=== PATIENT | female | born 1990 | race Caucasian/White ===

== ENCOUNTER 2016-11-25 19:00 | Emergency (ER) | payer MEDICAID ==
[2016-11-25 19:05] VITALS: RESP 16
--- NOTE | 2016-11-25 19:20 | EDPHY ---
H & P Stated Complaint: ruq abd pain/intermittent n/v x 4 days Time Seen by Provider: 11/25/16 19:11 HPI/ROS: CHIEF COMPLAINT: Right upper quadrant and epigastric pain x4 days HISTORY OF PRESENT ILLNESS: 26-year-old female otherwise healthy complaining of intermittent right upper quadrant epigastric pain for the past 4 days, tends to occur primarily after eating. Positive nausea. No vomiting. 1 episode of loose stool 4 days ago. No melena or hematochezia. No radiation of pain. No back pain. No dyspnea. No chest pain. No syncope or near syncope. No urinary complaints. No chronic NSAID use. No heavy alcohol use. REVIEW OF SYSTEMS: A ten point review of systems was performed and is negative with the exception of the items mentioned in the HPI PAST MEDICAL & SURGICAL HISTORY: No history of chronic abdominal pathology or surgeries SOCIAL HISTORY: nonsmoker PHYSICAL EXAM (Prior to examination, patient consented to physical exam, hands were washed and my usual and customary physical exam procedures followed) 1) GENERAL: Well-developed, well-nourished, alert and oriented. Appears to be in no acute distress. 2) HEAD: Normocephalic, atraumatic 3) HEENT: Pupils equal, round, reactive to light bilaterally. Sclera anicteric. 4) NECK: Full range of motion, no meningeal signs. 5) LUNGS: Clear auscultation bilaterally, no wheezes, no rhonchi, no retractions. 6) HEART: Regular rate and rhythm, no murmur, no heave, no gallop. 7) ABDOMEN: No guarding, she is tender to palpation epigastrium negative , McBurney's, negative Noe's, negative Rovsing's, negative peritoneal sign, 8) MUSCULOSKELETAL: Moving all extremities, no focal areas of tenderness, no obvious trauma. No peripheral edema or discoloration. 9) BACK: No CVA tenderness, no midline vertebral tenderness, no fluctuance, no step-off, no obvious trauma, no visual or palpable abnormality. 10) SKIN: No rash, no petechiae. 11) Psychiatric: Patient is oriented X 3, there is no agitation. DIFFERENTIAL DIAGNOSIS: In no particular order, including but not limited to biliary colic, cholecystitis, peptic ulcer disease, pancreatitis, and gastroenteritis. This is a partial list of diagnoses considered. These considerations are based on history, physical exam, past history and reassessment. - Personal History LMP (Females 10-55): IUD In Place Current Tetanus/Diphtheria Vaccine: Yes - Medical/Surgical History Hx Asthma: No Hx Chronic Respiratory Disease: No Hx Diabetes: No Hx Cardiac Disease: No Hx Renal Disease: No Hx Cirrhosis: No Hx Alcoholism: No Hx HIV/AIDS: No Hx Splenectomy or Spleen Trauma: No Other PMH: surgery on nose - Social History Smoking Status: Never smoked Constitutional: Initial Vital Signs Temperature (C) 36.4 C 11/25/16 19:03 Heart Rate 66 11/25/16 19:03 Respiratory Rate 16 11/25/16 19:03 Blood Pressure 122/74 H 11/25/16 19:03 O2 Sat (%) 96 11/25/16 19:03 O2 Delivery Mode Room Air Allergies/Adverse Reactions: pain meds Allergy (Uncoded 11/25/16 19:02) Home Medications: Medication Instructions Recorded Pantoprazole Sodium [Protonix 40mg 40 mg PO DAILY #30 tab 11/25/16 (RX)] Medical Decision Making - Diagnostics Imaging: Ultrasound Abdomen Limited History: Right upper quadrant pain. Findings: The liver is homogeneous, measuring 14 cm. No evidence for intrahepatic or extrahepatic biliary ductal dilatation. The common bile duct measures 5 mm. The gallbladder is partially contracted as the patient recently ate. No evidence for cholelithiasis or cholecystitis. The abdominal aorta is normal in diameter. The pancreas is unremarkable. The right kidney measures 10.1 cm in length and demonstrates no evidence for a mass or hydronephrosis. No significant free fluid. Impression: Mildly contracted gallbladder as the patient recently ate. Otherwise, normal right upper quadrant ultrasound. Results called to John Keith PA-C. Dictated By: Sherman Jeffrey MD Images reviewed by myself ED Course/Re-evaluation: 8:20 p.m.: Re-evaluation. Re-examined her abdomen. She has decreased pain. She states that she is feeling better. Doubt acute cholecystitis. Doubt acute pancreatitis. Doubt bowel obstruction. Doubt acute surgical abdominal pathology. Doubt acute appendicitis in the absence of lower abdominal pain. I think the patient can be discharged. She has been given GI cocktail, was started on proton pump inhibitor given usual customary dietary precautions and follow up with Gastroenterology referral information provided. She feels comfortable being discharged. Usual and customary abdominal precautions instructions provided. - Data Points Laboratory Results: Laboratory Results 11/25/16 19:23 11/25/16 19:23 11/25/16 19:23 WBC 7.60 10^3/uL (3.80-9.50) RBC 4.98 10^6/uL (4.18-5.33) Hgb 15.6 g/dL (12.6-16.3) Hct 45.7 % (38.0-47.0) MCV 91.8 fL (81.5-99.8) MCH 31.3 pg (27.9-34.1) MCHC 34.1 g/dL (32.4-36.7) RDW 12.0 % (11.5-15.2) Plt Count 283 10^3/uL (150-400) MPV 9.9 fL (8.7-11.7) Neut % (Auto) 63.5 % (39.3-74.2) Lymph % (Auto) 28.4 % (15.0-45.0) [place] % (Auto) 6.1 % (4.5-13.0) Eos % (Auto) 1.2 % (0.6-7.6) Baso % (Auto) 0.7 % (0.3-1.7) Nucleat RBC Rel Count 0.0 % (0.0-0.2) Absolute Neuts (auto) 4.83 10^3/uL (1.70-6.50) Absolute Lymphs (auto) 2.16 10^3/uL (1.00-3.00) Absolute Monos (auto) 0.46 10^3/uL (0.30-0.80) Absolute Eos (auto) 0.09 10^3/uL (0.03-0.40) Absolute Basos (auto) 0.05 10^3/uL (0.02-0.10) Absolute Nucleated RBC 0.00 10^3/uL (0-0.01) Immature Gran % 0.1 % (0.0-1.1) Immature Gran # 0.01 10^3/uL (0.00-0.10) Sodium 141 mEq/L (134-144) Potassium 4.2 mEq/L (3.5-5.2) Chloride 103 mEq/L (97-110) Carbon Dioxide 27 mEq/l (22-31) Anion Gap 11 mEq/L (8-16) BUN 10 mg/dL (7-23) Creatinine 0.8 mg/dL (0.6-1.0) Estimated GFR > 60 Glucose 100 mg/dL (70-100) Calcium 9.9 mg/dL (8.5-10.4) Total Bilirubin 1.1 mg/dL (0.1-1.4) Conjugated Bilirubin 0.2 mg/dL (0.0-0.5) Unconjugated Bilirubin 0.9 mg/dL (0.0-1.1) AST 20 IU/L (14-46) ALT 25 IU/L (9-52) Alkaline Phosphatase 71 IU/L (38-126) Total Protein 7.4 g/dL (6.3-8.2) Albumin 4.3 g/dL (3.5-5.0) Lipase 116.0 IU/L (23-300) Beta HCG, Qual NEGATIVE Medications Given: Discontinued Medications Miscellaneous Medication (Gi Cocktail) 45 ml PO EDNOW ONE Stop: 11/25/16 20:23 Last Admin: 11/25/16 20:46 Dose: Not Given Departure - Departure Disposition: Home, Routine, Self-Care Clinical Impression: Abdominal pain Qualifiers: Abdominal location: epigastric Qualifier Code: (R10.13) Epigastric pain Condition: Good Instructions: Acute Abdominal Pain (ED) Additional Instructions: Seek immediate medical attention if you develop new or worsening symptoms, if you develop fevers, chills, inability to tolerate oral intake or any other symptoms that concerns you. Referrals: Brian Blanco MD [Medical Doctor] - 5-7 days, call for appt. (Dr. Brian Blanco is a cold header operator) Prescriptions: Pantoprazole Sodium [Protonix 40mg (RX)] 40 mg PO DAILY #30 tab
[2016-11-25 19:34] LABS: % IMMATURE GRANULYOCYTES 0.1 % (0.0-1.1); ABSOLUTE IMMATURE GRANULOCYTES 0.01 10^3/uL (0.00-0.10); ADD DIFF? NO; ADD MORPH? NO; ADD SCAN? NO; ATYPICAL LYMPHOCYTE FLAG 10 (0-99); FRAGMENT RBC FLAG 0 (0-99); HEMATOCRIT 45.7 % (38.0-47.0); HEMOGLOBIN 15.6 g/dL (12.6-16.3); LEFT SHIFT FLG 0 (0-99); LIPEMIA HEMOLYSIS FLAG 90 (0-99); MEAN CELL HEMOGLOBIN 31.3 pg (27.9-34.1); MEAN CELL HEMOGLOBIN CONCENTR. 34.1 g/dL (32.4-36.7); MEAN CELL VOLUME 91.8 fL (81.5-99.8); MEAN PLATELET VOLUME 9.9 fL (8.7-11.7); PLATELET CLUMPS FLAG 0 (0-99); PLATELET COUNT 283 10^3/uL (150-400); RED BLOOD CELL COUNT 4.98 10^6/uL (4.18-5.33)
[2016-11-25 19:51] LABS: ALANINE AMINOTRANSFERASE 25 IU/L (9-52); ALBUMIN 4.3 g/dL (3.5-5.0); ALKALINE PHOSPHATASE 71 IU/L (38-126); ANION GAP 11 mEq/L (8-16); ASPARTATE AMINOTRANSFERASE 20 IU/L (14-46); BILIRUBIN,TOTAL 1.1 mg/dL (0.1-1.4); BILIRUBIN-CONJUGATED 0.2 mg/dL (0.0-0.5); BILIRUBIN-UNCONJUGATED 0.9 mg/dL (0.0-1.1); CALCIUM 9.9 mg/dL (8.5-10.4); CARBON DIOXIDE 27 mEq/l (22-31); CHLORIDE 103 mEq/L (97-110); CREATININE 0.8 mg/dL (0.6-1.0); GLOMERULAR FILTRATION RATE > 60; GLUCOSE 100 mg/dL (70-100); POTASSIUM 4.2 mEq/L (3.5-5.2); SODIUM 141 mEq/L (134-144); TOTAL PROTEIN 7.4 g/dL (6.3-8.2)
--- NOTE | 2016-11-25 20:13 | US ---
Ultrasound Abdomen Limited History: Right upper quadrant pain. Findings: The liver is homogeneous, measuring 14 cm. No evidence for intrahepatic or extrahepatic b iliary ductal dilatation. The common bile duct measures 5 mm. The gallbladder is partially contract ed as the patient recently ate. No evidence for cholelithiasis or cholecystitis. The abdominal aort a is normal in diameter. The pancreas is unremarkable. The right kidney measures 10.1 cm in length and demonstrates no evidence for a mass or hydronephrosis. No significant free fluid. Impression: Mildly contracted gallbladder as the patient recently ate. Otherwise, normal right uppe r quadrant ultrasound. Results called to John Keith PA-C.
[2016-11-25] MEDS ORDERED: MAALOX/LIDO/HYOSC GI COCKTAIL 55 ML BOTTLE PO ONE (20:22)
[2016-11-25 20:47] VITALS: BP 124/84; PULSE 72; TEMP 97.9; O2SAT 97
== END 2016-11-25 20:47 | disposition home or self-care (01) ==
DX: R10.13 Epigastric pain (principal)